=== PATIENT | male | born 1975 | race Caucasian/White ===

== ENCOUNTER 2018-05-08 14:47 | Outpatient (CLI) | payer MEDICAID ==
[~2018-05-08] VITALS: Ht 168.9 cm; Wt 100.7 kg
[2018-05-08 15:04] VITALS: BP 125/89
[2018-05-08 15:27] LABS: BASOPHILS % (AUTO) 0 % (0-10); EOSINOPHILS % (AUTO) 0 % (0-10); HEMATOCRIT 47 % (40-54); HEMOGLOBIN 16.8 G/DL (13.3-17.7); LYMPHOCYTES # (AUTO) 1.6 X 10^3 (1.0-4.0); LYMPHOCYTES % (AUTO) 10 % (12-44); MEAN CORPUSCULAR HEMOGLOBIN 31 PG (25-34); MEAN CORPUSCULAR HGB CONC 36 G/DL (32-36); MEAN CORPUSCULAR VOLUME 88 FL (80-99); MEAN PLATELET VOLUME 10.1 FL (7.4-10.4); MONOCYTES # (AUTO) 0.8 X 10^3 (0.0-1.0); MONOCYTES % (AUTO) 5 % (0-12); NEUTROPHILS # (AUTO) 14.2 X 10^3 (1.8-7.8); NEUTROPHILS % (AUTO) 85 % (42-75); PLATELET COUNT 281 10^3/uL (130-400); RED BLOOD COUNT 5.35 10^6/uL (4.35-5.85); RED CELL DISTRIBUTION WIDTH 13.6 % (10.0-14.5); WHITE BLOOD COUNT 16.7 10^3/uL (4.3-11.0)
[2018-05-08 15:49] LABS: BUN/CREATININE RATIO 11; CALCIUM 9.3 MG/DL (8.5-10.1); CARBON DIOXIDE 22 MMOL/L (21-32); CHLORIDE 107 MMOL/L (98-107); CREATININE SERUM 0.95 MG/DL (0.60-1.30); GFR ESTIMATED > 60; GLUCOSE 126 MG/DL (70-105); POTASSIUM 4.1 MMOL/L (3.6-5.0); SODIUM 138 MMOL/L (135-145)
[2018-05-08 16:00] LABS: BAND NEUTROPHILS 0 %; BASOPHILS % (MANUAL) 0 %; EOSINOPHILS % (MANUAL) 1 %; LYMPHOCYTES % (MANUAL) 9 %; MONOCYTES % (MANUAL) 1 %; NEUTROPHILS % (MANUAL) 89 %
[2018-05-08 16:01] LABS: RBC MORPH NORMAL
== END 2018-05-08 15:20 | disposition home or self-care (01) ==
LOC: PREOP 14:47
PROVIDERS: ATTEND Otolaryngology Otolaryngology/Facial Plastic Surgery
DX: Z01.810 Encounter for preprocedural cardiovascular examination (principal); Z01.812 Encounter for preprocedural laboratory examination; Z11.2 Encounter for screening for other bacterial diseases; J32.9 Chronic sinusitis, unspecified; J34.2 Deviated nasal septum; J34.3 Hypertrophy of nasal turbinates; H69.93 Unspecified Eustachian tube disorder, bilateral
CPT/HCPCS: 36415; 80048; 85007; 85027; 87081; 93005

== ENCOUNTER 2018-05-12 07:16 | Day surgery (SDC) | payer MEDICAID ==
[~2018-05-12] VITALS: Ht 168.9 cm; Wt 100.7 kg
[2018-05-12 07:30] VITALS: BP 147/89
[2018-05-12] MEDS ORDERED: BSS 15 ML ONE (07:36)
[2018-05-12] MEDS ORDERED: COCAINE HCL 4% 2 ML SYR ONE (07:36)
[2018-05-12] MEDS ORDERED: PHENYLEPHRINE 0.5% NASAL SPR (NEO-SYNEPHRINE) REG ONE (07:37)
[2018-05-12] MEDS ORDERED: LIDOCAINE/EPI 1%-1:200,000 (XYLOCAINE) 10 ML VIAL ONE (07:37)
[2018-05-12] MEDS ORDERED: LACTATED RINGERS 1,000 ML IV PRN (07:40)
[2018-05-12] MEDS ORDERED: FAMOTIDINE 20MG/2ML IV (PEPCID) IV ONE (07:45)
[2018-05-12] MEDS ORDERED: HYDROCORTISONE 100 MG/2 ML (Solu-CORTEF) VIAL IV ONE (07:45)
[2018-05-12] MEDS ORDERED: MIDAZOLAM 2 MG/2 ML (VERSED) VIAL IV ONE (07:45)
--- NOTE | 2018-05-12 07:55 | Progress Note-Pre Operative ---
Pre-Operative Progress Note H&P Reviewed The H&P was reviewed, patient examined and no changes noted. Date Seen by Provider: May 12, 2018 Time Seen by Provider: 07:30 Date H&P Reviewed: May 12, 2018 Time H&P Reviewed: 07:30 Pre-Operative Diagnosis: Bilat Chronic Sinusitis, Bilat abmormal eus tube fct, chris septum, bilat hy SHANTANU WEST MD May 12, 2018 7:55 am
[2018-05-12] MEDS ORDERED: CEFTRIAXONE FOR IV SCH (08:00)
[2018-05-12] MEDS ORDERED: cefTRIAXone FOR IV USE 750 MG in NS (IVPB) 50 ML IV ONE (08:00)
[2018-05-12] MEDS ORDERED: LIDOCAINE PF 2% 2 ML (XYLOCAINE) VIAL ONE (08:07)
[2018-05-12] MEDS ORDERED: fentaNYL INJECTION 100 MCG/2 ML AMP ONE (08:09)
[2018-05-12] MEDS ORDERED: MIDAZOLAM 2 MG/2 ML (VERSED) VIAL ONE (08:10)
[2018-05-12] MEDS ORDERED: DEXAMETHASONE 10 MG/ML (DECADRON) 1 ML VIAL ONE (08:43)
[2018-05-12] MEDS ORDERED: ONDANSETRON 4 MG/2 ML (SDV) Z0FRAN ONE (08:43)
[2018-05-12] MEDS ORDERED: SEVOFLURANE (ULTANE) 15 ML INHAL SOLN ONE ×4 (08:43→09:25)
[2018-05-12] MEDS ORDERED: proPOfol 200 MG/20 ML (DIPRIVAN) VIAL IV ONE (08:43)
[2018-05-12] MEDS ORDERED: ROCURONIUM 10 MG/ML 5 ML SYRINGE IV ONE (08:43)
[2018-05-12] MEDS ORDERED: D5 1/2 NS W/KCL 20 MEQ/L 1,000 ML IV SCH (09:41)
--- NOTE | 2018-05-12 09:41 | Progress Note-Post Operative ---
Post-Operative Progess Note Surgeon (s)/Stone Lathe Operator (s) Surgeon SHANTANU WEST MD Stone Lathe Operator n/a Pre-Operative Diagnosis Bilat Chronic Sinusitis, Bilat abmormal eus tube fct, chris septum, bilat hy Post-Operative Diagnosis same Post-Op Procedure Note Date of Procedure: May 12, 2018 Name of Procedure Performed: Bilat ESs, Septoplasty,Bilat Partial REd of Inf Turbs, BMT Description & Findings Description and Findings: n/a Anesthesia Type get Estimated Blood Loss minimal Packing none. Specimen(s) collected/removed Bilat Chrnic Sinus disease, nasal septum SHANTANU WEST MD May 12, 2018 9:41 am
[2018-05-12] MEDS ORDERED: HYDROcodone/APAP 5 MG/325 MG (LORTAB) TAB PO PRN (09:45)
[2018-05-12] MEDS ORDERED: predniSONE 20 MG TAB PO NR (09:45)
[2018-05-12] MEDS ORDERED: ACETAMINOPHEN 325 MG TABLET PO PRN (09:45)
[2018-05-12] MEDS ORDERED: PROMETHAZINE INJ 25 MG/ML (PHENERGAN) AMP IVP PRN (09:45)
[2018-05-12] MEDS ORDERED: morphine INJ 10 MG/ML 1ML (SYR OR VIAL) ONE (09:48)
[2018-05-12] MEDS ORDERED: HYDROmorphone 2 MG/ML VIAL (DILAUDID) IV ONE (10:00)
[2018-05-12] MEDS ORDERED: MEPERIDINE (DEMEROL) INJ 50 MG/ML IVP ONE ×2 (10:00)
[2018-05-12] MEDS ORDERED: morphine INJ 10 MG/ML 1ML (SYR OR VIAL) IVP ONE ×2 (10:00)
[2018-05-12] MEDS ORDERED: ONDANSETRON 4 MG/2 ML (SDV) Z0FRAN IVP PRN ×2 (10:00)
[2018-05-12] MEDS ORDERED: fentaNYL INJECTION 100 MCG/2 ML AMP IVP ONE (10:00)
[2018-05-12 10:40] VITALS: BP 164/100
[2018-05-12] MEDS ORDERED: HYDR-3812 PO (11:09)
[2018-05-12] MEDS ORDERED: AMOX-355 PO (11:09)
[2018-05-12] MEDS ORDERED: PRD20T PO (11:09)
[2018-05-12] MEDS ORDERED: OFLO5DRO7 EACH EAR (11:09)
[2018-05-12 11:10] VITALS: BP 152/98
[2018-05-12 11:40] VITALS: BP 148/94
[2018-05-12 11:55] VITALS: BP 148/94
--- NOTE | 2018-05-12 11:55 | Anesthesia-General Post-Op ---
General Patient Condition Mental Status/LOC: Same as Preop Cardiovascular: Satisfactory Nausea/Vomiting: Absent Respiratory: Satisfactory Pain: Controlled Complications: Absent Post Op Complications Complications None Follow Up Care/Instructions Patient Instructions None needed. Anesthesia/Patient Condition Patient Condition Patient is doing well, no complaints, stable vital signs, no apparent adverse anesthesia problems. No complications reported per nursing. SHARON JOHANSEN CRNA May 12, 2018 11:55
== END 2018-05-12 12:00 | disposition home or self-care (01) ==
LOC: SDC 07:16
PROVIDERS: ATTEND Otolaryngology Otolaryngology/Facial Plastic Surgery
DX: J32.0 Chronic maxillary sinusitis (principal); J32.2 Chronic ethmoidal sinusitis; J32.3 Chronic sphenoidal sinusitis; J34.2 Deviated nasal septum; J34.3 Hypertrophy of nasal turbinates; H69.93 Unspecified Eustachian tube disorder, bilateral; K21.9 Gastro-esophageal reflux disease without esophagitis; F17.210 Nicotine dependence, cigarettes, uncomplicated; F41.9 Anxiety disorder, unspecified

== ENCOUNTER 2018-10-10 13:00 | Emergency (ER) | payer MEDICAID ==
[~2018-10-10] VITALS: Ht 167.6 cm; Wt 99.8 kg
[~2018-10-10 13:00] MED LIST: AMOX-355 PO; HYDR-3812 PO; OFLO5DRO7 EACH EAR; PRD20T PO
--- NOTE | 2018-10-10 13:07 | NUR ---
Pt reports he is on Metoprolol XR for HTN for 1 1/2 mo and was sent to Dr Pablo office last week for appt regarding HTN. Pt states he has scheduled tests by Dr Pablo for Nuc Med stress testing and 2 D Echo. Pt also reports pulsatile tinnitus. Pt reports he took his BP, anxiety and stomach med all at 1000. Pt states he may not be on enought anxiety meds.
[2018-10-10 13:15] VITALS: BP 157/97
--- NOTE | 2018-10-10 13:22 | NUR ---
Dr Sims into room to see pt.
[2018-10-10 13:30] VITALS: BP 146/91
[2018-10-10] MEDS ORDERED: ALPR0.254 (13:35)
[2018-10-10] MEDS ORDERED: METO-387 (13:35)
--- NOTE | 2018-10-10 13:39 | NUR ---
Significant other returning to room.
--- NOTE | 2018-10-10 13:43 | ED General ---
General Chief Complaint: General Problems/Pain Stated Complaint: ELEVTED BP, ANXIETY Nursing Triage Note: Pt presents to ED reporting "did not feel well today". Pt took his BP and reports 150/100. Pt reports alittle nauseated earlier and felt shaky. Pt hx HTN and Anxiety and took his meds at 1000 including Prilosec for stomach. Nursing Sepsis Screen: No Definite Risk History of Present Illness Date Seen by Provider: Oct 10, 2018 Time Seen by Provider: 13:28 Initial Comments Patient reports because he "does not feel well today" patient reports he feels tenderness shaky and nauseated. Patient reports that he has had previous anxiety issues and that was similar to this. They took his blood pressure and it was 50/100 so he got concerned and came to the ER. Patient reports he has had a large workup for anxiety including multiple lather and usually comes back normal. He is feeling better at this time. His reports that he was "supposed to had his Xanax increased" last week but had to miss the appointment due to family . Patient does not have any chest pain or other symptoms at this time. Allergies and Home Medications Allergies Coded Allergies: buspirone (Unverified Allergy, Unknown, 10/10/18) doxycycline (Verified Allergy, Unknown, NAUSEA, 05/08/18) Home Medications Amoxicillin/Potassium Clav 1 Each Tablet, 1 EACH PO BID Prescribed by: ESTEFANI RIVERA on 05/12/18 1109 Hydrocodone/Acetaminophen 1 Each Tablet, 1-2 EACH PO Q4H PRN for PAIN-MODERATE Prescribed by: ESTEFANI RIVERA on 05/12/18 1109 Patient Home Medication List Home Medication List Reviewed: Yes Review of Systems Review of Systems Constitutional: No chills, No diaphoresis EENTM: no symptoms reported Respiratory: no symptoms reported Cardiovascular: no symptoms reported Gastrointestinal: No abdominal pain; nausea Psychiatric/Neurological: Anxiety, Tremors Past [id number]-[id number] Hx Past Med/Social Hx: Reviewed Nursing Past Med/Soc Hx Patient Social History Alcohol Use: Rarely Uses Recreational Drug Use: No Smoking Status: Former Smoker Type Used: Cigarettes Former Smoker, Quit: Aug 22, 2018 Recent Foreign Travel: No Contact w/Someone Who Travel: No Recent Infectious Disease Expo: No Recent Hopitalizations: No Physical Abuse: No Sexual Abuse: No Mistreated: No Fear: No Seasonal Allergies Seasonal Allergies: Yes Past Medical History Surgeries: Yes Gallbladder, Testicular Respiratory: No Cardiac: Yes Hypertension Neurological: No Genitourinary: No Gastrointestinal: Yes Ulcer Musculoskeletal: Yes Arthritis Endocrine: No HEENT: No Cancer: No Psychosocial: Yes Anxiety Integumentary: No Blood Disorders: No Physical Exam Vital Signs Vital Signs - First Documented 10/10/18 13:07 Temp 97.5 Pulse 103 Resp 20 B/P (MAP) 173/101 (125) Pulse Ox 98 O2 Delivery Room Air Capillary Refill : Less Than 3 Seconds Height, Weight, BMI Height: 5'6.00" Weight: 220lbs. 0.0oz. [id number]; 35.3 BMI Method:Stated General Appearance: No Apparent Distress, WD/WN HEENT: PERRL/EOMI, Normal ENT Inspection Neck: Full Range of Motion, Supple Respiratory: Chest Non Tender, Lungs Clear, Normal Breath Sounds Cardiovascular: Regular Rate, Rhythm, Normal Peripheral Pulses Gastrointestinal: Normal Bowel Sounds, Non Tender, Soft Extremity: Normal Inspection, Normal Range of Motion Neurologic/Psychiatric: Alert, Oriented x3, No Motor/Sensory Deficits Skin: Normal Color, Warm/Dry Progress/Results/Core Measures Suspected Sepsis Recent Fever Within 48 Hours: No Infection Criteria Present: None New/Unexplained Altered Menta: No Sepsis Screen: No Definite Risk SIRS Temperature:97.5 Pulse: 103 Respiratory Rate: 20 Blood Pressure 173 /101 Mean: 125 Results/Orders Vital Signs/I&O 10/10/18 13:07 Temp 97.5 Pulse 103 Resp 20 B/P (MAP) 173/101 (125) Pulse Ox 98 O2 Delivery Room Air Capillary Refill : Less Than 3 Seconds Blood Pressure Mean: 125 Progress Note : Time: 13:41 Progress Note Patient was offered extensive workup including cardiac with troponin but deferred since he has had multiple negative workups in the past.. He feels that is likely is anxiety since of similar symptoms in the past and he's recently had negative exams and labs. He did see a barge engineer recently and has a outpatient stress test and echo scheduled. He discussed that he really doesn't want to be on Xanax and an addictive medication. I recommended that he follow- up with his primary care physician and consider a daily long-term medication such as Paxil or similar antidepressant anti-anxiolytic. Patient is going to go and schedule an outpatient follow-up and will be discharged home in stable condition. Departure Impression Primary Impression: Anxiety Disposition: 01 HOME, SELF-CARE Condition: Stable Departure-Patient Inst. Decision time for Depature: 13:44 Referrals: CARMELA BURT MD (PCP/Family) Primary Care Physician Patient Instructions: Anxiety, Adult (DC) BALA YANES DO Oct 10, 2018 13:43
[2018-10-10 13:55] VITALS: BP 134/86
--- NOTE | 2018-10-10 13:55 | NUR ---
Pt discharged at this time to home after verbalizing understanding of home instructions. Pt has declined for cardiac work up offered by physician but pt states, "I just was seen by Dr Pablo and have more tests scheduled." "I feel it is anxiety, I understand you can not adjust my meds." "I apologize that I don't want more tests done." Pt was given reassurance staff will do whatever he wanted.
== END 2018-10-10 13:55 | disposition home or self-care (01) ==
LOC: EDUNIT# 13:00 → ER FS 13:02
DX: F41.9 Anxiety disorder, unspecified (principal); I10 Essential (primary) hypertension; Z87.19 Personal history of other diseases of the digestive system; Z88.8 Allergy status to other drugs, medicaments and biological substances; Z88.1 Allergy status to other antibiotic agents; Z87.891 Personal history of nicotine dependence; Z98.890 Other specified postprocedural states
CPT/HCPCS: 99281

== ENCOUNTER → 2018-11-06 | Outpatient (CLI) | payer MEDICAID ==
[~2018-11-06] MED LIST changes: +ALPR0.254; +METO-387
== END ==
LOC: CARD 09:05
PROVIDERS: ATTEND Internal Medicine Cardiovascular Disease
DX: R07.9 Chest pain, unspecified (principal); R00.2 Palpitations; F41.9 Anxiety disorder, unspecified; K27.9 Peptic ulcer, site unspecified, unspecified as acute or chronic, without hemorrhage or perforation; K21.9 Gastro-esophageal reflux disease without esophagitis; E66.9 Obesity, unspecified; Z68.35 Body mass index [BMI] 35.0-35.9, adult; Z72.0 Tobacco use
CPT/HCPCS: 93306; 93351

== ENCOUNTER 2019-09-25 11:54 | Emergency (ER) | payer MEDICAID ==
[~2019-09-25] VITALS: Ht 170.2 cm; Wt 103.0 kg
[~2019-09-25 11:54] MED LIST changes: -METO-387; +MTP25TSR; +OFLO5DRO33 EACH EAR; -OFLO5DRO7 EACH EAR
--- NOTE | 2019-09-25 12:38 | ED Cardiac General ---
History of Present Illness General Chief Complaint: Cardiac/General Problems Stated Complaint: BP PROBLEM; LIGHT HEADED Nursing Triage Note: Patient reports he has panic attacks, states he believes he is having a panic attack today, states he took his blood pressure at home and was getting higher than normal readings and felt as though he was "missing some breaths" while taking his blood pressure. He states he has taken his xanax this morning already. Source: patient Exam Limitations: no limitations History of Present Illness Date Seen by Provider: Sep 25, 2019 Time Seen by Provider: 12:00 Initial Comments The patient is a pleasant 43-year-old male presents for evaluation of anxiety, palpitations, and some dizziness. He states that he felt like he was having a panic attack today and took his blood pressure. While doing this he felt like he was missing either some heartbeat source of breaths, he is not sure. He feels completely back to normal at this time to wanted to be evaluated. He takes Xanax for anxiety and did take some this morning. He is alert and oriented 4, calm, and appears to be in no distress this time. He denies headache, neck pain or stiffness, vision changes, chest discomfort or shortness of breath, nausea or vomiting, fevers or chills, or syncope. He states that he when he stands up he feels a little dizzy occasionally. Timing/Duration: 4-6 hours Severity: mild Allergies and Home Medications Allergies Coded Allergies: buspirone (Unverified Allergy, Unknown, 10/10/18) doxycycline (Verified Allergy, Unknown, NAUSEA, 05/08/18) Home Medications Amoxicillin/Potassium Clav 1 Each Tablet, 1 EACH PO BID Prescribed by: ESTEFANI RIVERA on 05/12/18 1109 Hydrocodone/Acetaminophen 1 Each Tablet, 1-2 EACH PO Q4H PRN for PAIN-MODERATE Prescribed by: ESTEFANI RIVERA on 05/12/18 1109 Patient Home Medication List Home Medication List Reviewed: Yes Review of Systems Review of Systems Constitutional: dizziness EENTM: No Symptoms Reported Respiratory: No Symptoms Reported Cardiovascular: Palpitations Gastrointestinal: No Symptoms Reported Genitourinary: No Symptoms Reported Musculoskeletal: no symptoms reported Skin: no symptoms reported Psychiatric/Neurological: Anxiety Endocrine: No Symptoms Reported Hematologic/Lymphatic: No Symptoms Reported All Other Systems Reviewed Negative Unless Noted: Yes Past Lmdrvha-Ytqvsj-Smnzbz Hx Past Med/Social Hx: Reviewed Nursing Past Med/Soc Hx Patient Social History Type Used: Cigarettes Former Smoker, Quit: Aug 22, 2018 Recent Foreign Travel: No Contact w/Someone Who Travel: No Recent Infectious Disease Expo: No Recent Hopitalizations: No Seasonal Allergies Seasonal Allergies: Yes Past Medical History Surgeries: Yes Gallbladder, Testicular Respiratory: No Cardiac: Yes Hypertension Neurological: No Genitourinary: No Gastrointestinal: Yes Ulcer Musculoskeletal: Yes Arthritis Endocrine: No HEENT: No Cancer: No Psychosocial: Yes Anxiety Integumentary: No Blood Disorders: No Physical Exam Vital Signs Vital Signs - First Documented 09/25/19 12:18 Temp 36.6 Pulse 106 Resp 18 B/P (MAP) 186/96 (126) Pulse Ox 97 O2 Delivery Room Air Capillary Refill : Less Than 3 Seconds Height, Weight, BMI Height: 5'6.50" Weight: 222lbs. 0.0oz. 100.464652cw; 35.00 BMI Method:Stated General Appearance: No Apparent Distress, WD/WN HEENT: PERRL/EOMI, Pharynx Normal Respiratory: Chest Non Tender, Lungs Clear, Normal Breath Sounds, No Accessory Muscle Use Cardiovascular: Regular Rate, Rhythm, No Edema, No Murmur Gastrointestinal: Normal Bowel Sounds, No Pulsatile Mass, Non Tender, Soft Extremity: Normal Capillary Refill, Normal Inspection, Non Tender Neurologic/Psychiatric: Alert, Oriented x3, No Motor/Sensory Deficits, Normal Mood/Affect Skin: Normal Color, Warm/Dry Progress/Results/Core Measures Results/Orders Lab Results Laboratory Tests Test 09/25/19 12:45 Range/Units White Blood Count 5.0 4.3-11.0 10^3/uL Red Blood Count 5.49 4.35-5.85 10^6/uL Hemoglobin 16.7 13.3-17.7 G/DL Hematocrit 47 40-54 % Mean Corpuscular Volume 86 80-99 FL Mean Corpuscular Hemoglobin 30 25-34 PG Mean Corpuscular Hemoglobin Concent 35 32-36 G/DL Red Cell Distribution Width 12.6 10.0-14.5 % Platelet Count 226 130-400 10^3/uL Mean Platelet Volume 9.9 7.4-10.4 FL Neutrophils (%) (Auto) 52 42-75 % Lymphocytes (%) (Auto) 34 12-44 % Monocytes (%) (Auto) 9 0-12 % Eosinophils (%) (Auto) 4 0-10 % Basophils (%) (Auto) 1 0-10 % Neutrophils # (Auto) 2.6 1.8-7.8 X 10^3 Lymphocytes # (Auto) 1.7 1.0-4.0 X 10^3 Monocytes # (Auto) 0.5 0.0-1.0 X 10^3 Eosinophils # (Auto) 0.2 0.0-0.3 10^3/uL Basophils # (Auto) 0.1 0.0-0.1 10^3/uL Sodium Level 139 135-145 MMOL/L Potassium Level 4.1 3.6-5.0 MMOL/L Chloride Level 101 98-107 MMOL/L Carbon Dioxide Level 23 21-32 MMOL/L Anion Gap 15 H 5-14 MMOL/L Blood Urea Nitrogen 10 7-18 MG/DL Creatinine 0.85 0.60-1.30 MG/DL Estimat Glomerular Filtration Rate > 60 BUN/Creatinine Ratio 12 Glucose Level 114 H 70-105 MG/DL Calcium Level 9.2 8.5-10.1 MG/DL Corrected Calcium 9.1 8.5-10.1 MG/DL Total Bilirubin 0.2 0.1-1.0 MG/DL Aspartate Amino Transf (AST/SGOT) 29 5-34 U/L Alanine Aminotransferase (ALT/SGPT) 41 0-55 U/L Alkaline Phosphatase 70 40-136 U/L Total Protein 7.4 6.4-8.2 GM/DL Albumin 4.1 3.2-4.5 GM/DL My Orders Orders - ALEXANDER RODRIGUEZ DO Ekg Tracing (09/25/19 12:18) Cbc With Automated Diff (09/25/19 12:27) Comprehensive Metabolic Panel (09/25/19 12:27) Ns Iv 1000 Ml (Sodium Chloride 0.9%) (09/25/19 12:45) Vital Signs/I&O 09/25/19 12:18 Temp 36.6 Pulse 106 Resp 18 B/P (MAP) 186/96 (126) Pulse Ox 97 O2 Delivery Room Air Blood Pressure Mean: 126 Progress Progress Note : Progress Note @1425 - patient and family informed of lab results which are unremarkable. The patient's EKG was also unremarkable. Advise close follow-up with PCP in continuing to monitor his blood pressure at home with his home blood pressure cuff. The patient is no complaints and is asking to be discharged home. Today fails reveal any emergent pathology and the patient is stable for discharge home at this time. EKG : Comment @1304 - normal sinus rhythm, rate of 79, normal axis, no acute ischemic findings noted, no STEMI, reviewed and interpreted by myself Departure Impression Primary Impression: Palpitations Additional Impression: Anxiety Disposition: 01 HOME, SELF-CARE Condition: Stable Departure-Patient Inst. Decision time for Depature: 14:32 Referrals: CARMELA BURT MD (PCP/Family) Primary Care Physician Patient Instructions: Palpitations, Anxiety, Adult (DC) Add. Discharge Instructions: Continue to take your home medications as prescribed. Follow-up with your doctor in the next 1-2 days and discuss your anxiety symptoms as well as your blood pressure concerns. Return to the emergency Department immediately for new or worsening symptoms. ALEXANDER RODRIGUEZ DO Sep 25, 2019 12:38
[2019-09-25] MEDS ORDERED: NS IV 1000 ML 1,000 ML IV SCH (12:45)
[2019-09-25 13:09] LABS: HEMATOCRIT 47 % (40-54); HEMOGLOBIN 16.7 G/DL (13.3-17.7); MEAN CORPUSCULAR HEMOGLOBIN 30 PG (25-34); MEAN CORPUSCULAR HGB CONC 35 G/DL (32-36); MEAN CORPUSCULAR VOLUME 86 FL (80-99); MEAN PLATELET VOLUME 9.9 FL (7.4-10.4); NEUTROPHILS % (AUTO) 52 % (42-75); PLATELET COUNT 226 10^3/uL (130-400); RED CELL DISTRIBUTION WIDTH 12.6 % (10.0-14.5)
[2019-09-25 13:10] LABS: BASOPHILS # (AUTO) 0.1 10^3/uL (0.0-0.1); BASOPHILS % (AUTO) 1 % (0-10); EOSINOPHILS # (AUTO) 0.2 10^3/uL (0.0-0.3); EOSINOPHILS % (AUTO) 4 % (0-10); LYMPHOCYTES # (AUTO) 1.7 X 10^3 (1.0-4.0); LYMPHOCYTES % (AUTO) 34 % (12-44); MONOCYTES # (AUTO) 0.5 X 10^3 (0.0-1.0); MONOCYTES % (AUTO) 9 % (0-12); NEUTROPHILS # (AUTO) 2.6 X 10^3 (1.8-7.8)
[2019-09-25 13:28] LABS: SODIUM 139 MMOL/L (135-145)
[2019-09-25 13:29] LABS: ALANINE AMINOTRANSFERASE 41 U/L (0-55); ALBUMIN 4.1 GM/DL (3.2-4.5); ALKALINE PHOSPHATASE 70 U/L (40-136); BILIRUBIN,TOTAL 0.2 MG/DL (0.1-1.0); BUN/CREATININE RATIO 12; CALCIUM 9.2 MG/DL (8.5-10.1); CARBON DIOXIDE 23 MMOL/L (21-32); CHLORIDE 101 MMOL/L (98-107); CREATININE SERUM 0.85 MG/DL (0.60-1.30); GFR ESTIMATED > 60; GLUCOSE 114 MG/DL (70-105); POTASSIUM 4.1 MMOL/L (3.6-5.0); TOTAL PROTEIN 7.4 GM/DL (6.4-8.2)
[2019-09-25 14:42] VITALS: BP 138/87
== END 2019-09-25 14:42 | disposition home or self-care (01) ==
LOC: EDUNIT# 11:54 → ER FS 11:55
DX: F41.9 Anxiety disorder, unspecified (principal); I10 Essential (primary) hypertension; Z88.1 Allergy status to other antibiotic agents; Z88.8 Allergy status to other drugs, medicaments and biological substances; Z77.22 Contact with and (suspected) exposure to environmental tobacco smoke (acute) (chronic)
CPT/HCPCS: 36415; 80053; 85025; 93005

== ENCOUNTER 2020-12-10 19:52 | Emergency (ER) | payer MEDICAID ==
[~2020-12-10] VITALS: Ht 175.3 cm; Wt 104.7 kg
[~2020-12-10 19:52] MED LIST changes: +ACHD5005 PO; +ALPR.25T; -ALPR0.254; -HYDR-3812 PO
[2020-12-10 20:11] LABS: BASOPHILS % (AUTO) 1 % (0-10); EOSINOPHILS % (AUTO) 3 % (0-10); HEMATOCRIT 45 % (40-54); HEMOGLOBIN 16.3 G/DL (13.3-17.7); LYMPHOCYTES % (AUTO) 21 % (12-44); MEAN CORPUSCULAR HEMOGLOBIN 31 PG (25-34); MEAN CORPUSCULAR HGB CONC 36 G/DL (32-36); MEAN CORPUSCULAR VOLUME 85 FL (80-99); MEAN PLATELET VOLUME 9.5 FL (7.4-10.4); MONOCYTES % (AUTO) 9 % (0-12); NEUTROPHILS % (AUTO) 66 % (42-75); PLATELET COUNT 264 10^3/uL (130-400)
[2020-12-10 20:12] LABS: BASOPHILS # (AUTO) 0.1 10^3/uL (0.0-0.1); EOSINOPHILS # (AUTO) 0.2 10^3/uL (0.0-0.3); LYMPHOCYTES # (AUTO) 1.6 X 10^3 (1.0-4.0); MONOCYTES # (AUTO) 0.7 X 10^3 (0.0-1.0); NEUTROPHILS # (AUTO) 5.3 X 10^3 (1.8-7.8)
[2020-12-10 20:30] LABS: ALANINE AMINOTRANSFERASE 66 U/L (0-55); ALKALINE PHOSPHATASE 95 U/L (40-136); BILIRUBIN,TOTAL 0.4 MG/DL (0.1-1.0); BUN/CREATININE RATIO 14; CALCIUM 9.3 MG/DL (8.5-10.1); CARBON DIOXIDE 23 MMOL/L (21-32); CHLORIDE 107 MMOL/L (98-107); CREATININE SERUM 0.94 MG/DL (0.60-1.30); GFR ESTIMATED > 60; GLUCOSE 112 MG/DL (70-105); POTASSIUM 4.3 MMOL/L (3.6-5.0); SODIUM 139 MMOL/L (135-145)
[2020-12-10 20:31] LABS: ALBUMIN 4.7 GM/DL (3.2-4.5); TOTAL PROTEIN 7.7 GM/DL (6.4-8.2)
--- NOTE | 2020-12-10 20:32 | ED General ---
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 He also had a bloated sensation in his abdomen. He had checked his blood pressure and it was elevated which concerned him so he left work to come be evaluated. His anxiety medicine is Xanax and he takes it 3 times a day. He also takes a low-dose lisinopril for blood pressure. He feels like he might need adjustment of his Xanax. He has been working long hours and extra days recently with the [employer]. With this extra stress he has been more anxious. He denies any headache or change in vision. He had an epigastric discomfort and bloating sensation. He denied any nausea or vomiting. He has been trying to eat healthier and has lost a lot of weight recently but today he was running late so that made him more anxious as well as he had eaten fast food which he has not done for quite a while. This may have contributed to his bloated sensation and help to trigger more anxiety and elevated blood pressure. He denies any numbness or tingling in his arms or legs. He has no change in his vision. Allergies and Home Medications Allergies Coded Allergies: buspirone (Unverified Allergy, Unknown, 10/10/18) doxycycline (Verified Allergy, Unknown, NAUSEA, 05/08/18) Home Medications Amoxicillin/Potassium Clav 1 Each Tablet, 1 EACH PO BID Prescribed by: ESTEFANI RIVERA on 05/12/18 1107 Hydrocodone Bit/Acetaminophen 1 Each Tablet, 1-2 EACH PO Q4H PRN for PAIN- MODERATE Prescribed by: ESTEFANI RIVERA on 05/12/18 1109 Patient Home Medication List Home Medication List Reviewed: Yes Review of Systems Review of Systems Constitutional: No chills, No diaphoresis, No dizziness, No fever EENTM: no symptoms reported Respiratory: no symptoms reported Cardiovascular: chest pain (Epigastric bloating and discomfort for the last few hours) Gastrointestinal: see HPI Genitourinary: no symptoms reported Musculoskeletal: no symptoms reported Skin: no symptoms reported Psychiatric/Neurological: Anxiety; Denies Headache Hematologic/Lymphatic: No Symptoms Reported Past Rdgqhoy-Qbndbx-Siiyin Hx Past Med/Social Hx: Reviewed Nursing Past Med/Soc Hx Patient Social History Alcohol Use: Denies Use Smoking Status: Current Everyday Smoker Type Used: Cigarettes Former Smoker, Quit: Aug 22, 2018 2nd Hand Smoke Exposure: Yes Recent Infectious Disease Expo: No Recent Hopitalizations: No Seasonal Allergies Seasonal Allergies: Yes Past Medical History Surgeries: Yes (sinus surgery) Gallbladder, Testicular Respiratory: No Cardiac: Yes Hypertension Neurological: No Genitourinary: No Gastrointestinal: Yes Ulcer Musculoskeletal: Yes Arthritis Endocrine: No HEENT: No Cancer: No Psychosocial: Yes (panic attacks) Anxiety Integumentary: No Blood Disorders: No Physical Exam Vital Signs Vital Signs - First Documented 12/10/20 20:06 Temp 37.1 Pulse 108 Resp 16 B/P (MAP) 170/92 (118) Pulse Ox 97 O2 Delivery Room Air Capillary Refill : Less Than 3 Seconds Height, Weight, BMI Height: 5'6.50" Weight: 222lbs. 0.0oz. 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 Skin: Normal Color, Warm/Dry Progress/Results/Core Measures Suspected Sepsis Recent Fever Within 48 Hours: No Infection Criteria Present: None New/Unexplained Altered Menta: No Sepsis Screen: No Definite Risk SIRS Temperature: Pulse: 108 Respiratory Rate: 16 Laboratory Tests 12/10/20 19:55: White Blood Count 8.0 Blood Pressure 170 /92 Mean: 118 Laboratory Tests 12/10/20 19:55: Creatinine 0.94, Platelet Count 264, Total Bilirubin 0.4 Results/Orders Lab Results Laboratory Tests Test 12/10/20 19:55 Range/Units White Blood Count 8.0 4.3-11.0 10^3/uL Red Blood Count 5.31 4.35-5.85 10^6/uL Hemoglobin 16.3 13.3-17.7 G/DL Hematocrit 45 40-54 % Mean Corpuscular Volume 85 80-99 FL Mean Corpuscular Hemoglobin 31 25-34 PG Mean Corpuscular Hemoglobin Concent 36 32-36 G/DL Red Cell Distribution Width 12.7 10.0-14.5 % Platelet Count 264 130-400 10^3/uL Mean Platelet Volume 9.5 7.4-10.4 FL Immature Granulocyte % (Auto) 0 % Neutrophils (%) (Auto) 66 42-75 % Lymphocytes (%) (Auto) 21 12-44 % Monocytes (%) (Auto) 9 0-12 % Eosinophils (%) (Auto) 3 0-10 % Basophils (%) (Auto) 1 0-10 % Neutrophils # (Auto) 5.3 1.8-7.8 X 10^3 Lymphocytes # (Auto) 1.6 1.0-4.0 X 10^3 Monocytes # (Auto) 0.7 0.0-1.0 X 10^3 Eosinophils # (Auto) 0.2 0.0-0.3 10^3/uL Basophils # (Auto) 0.1 0.0-0.1 10^3/uL Immature Granulocyte # (Auto) 0.0 0.0-0.1 10^3/uL Sodium Level 139 135-145 MMOL/L Potassium Level 4.3 3.6-5.0 MMOL/L Chloride Level 107 98-107 MMOL/L Carbon Dioxide Level 23 21-32 MMOL/L Anion Gap 9 5-14 MMOL/L Blood Urea Nitrogen 13 7-18 MG/DL Creatinine 0.94 0.60-1.30 MG/DL Estimat Glomerular Filtration Rate > 60 BUN/Creatinine Ratio 14 Glucose Level 112 H 70-105 MG/DL Calcium Level 9.3 8.5-10.1 MG/DL Corrected Calcium 8.5-10.1 MG/DL Total Bilirubin 0.4 0.1-1.0 MG/DL Aspartate Amino Transf (AST/SGOT) 32 5-34 U/L Alanine Aminotransferase (ALT/SGPT) 66 H 0-55 U/L Alkaline Phosphatase 95 40-136 U/L Troponin I < 0.30 <0.30 NG/ML Total Protein 7.7 6.4-8.2 GM/DL Albumin 4.7 H 3.2-4.5 GM/DL Lipase 20 8-78 U/L My Orders Orders - BRENDA POOLE MD Cbc With Automated Diff (12/10/20 19:55) Comprehensive Metabolic Panel (12/10/20 19:55) Troponin I Fs (12/10/20 19:55) Ekg Tracing (12/10/20 19:55) Chest 1 View Ap/Pa Only (12/10/20 19:55) Iv Heplock-Insert (Order) (12/10/20 19:55) Lipase (12/10/20 20:31) Pantoprazole Injection (Protonix Injecti (12/10/20 20:52) Metoprolol Tartrate Injection (Lopressor (12/10/20 20:52) Vital Signs/I&O 12/10/20 12/10/20 20:06 21:27 Temp 37.1 Pulse 108 80 Resp 16 16 B/P (MAP) 170/92 (118) 136/80 Pulse Ox 97 96 O2 Delivery Room Air Room Air Capillary Refill : Less Than 3 Seconds Blood Pressure Mean: 118 Progress Note #1: Progress Note With his complaint of abdominal bloating and concern about elevated blood pressure as well as possible anxiety attack and electrocardiogram was obtained as well as basic labs including cardiac enzymes. His electrocardiogram did not demonstrate any acute ST elevation. Allowed to rest in the room while waiting on testing to come back. Placed on cardiac monitor technician for monitoring his heart rhythm and initial tracing shows sinus tachycardia without ectopy. Differential diagnosis includes anxiety attack, uncontrolled blood pressure, myocardial infarction, gastroenteritis, gastritis with esophagitis, esophageal spasms, pancreatitis Progress Note #2: Time: 20:44 Progress Note Reviewed with patient that his electrocardiogram, chest x-ray, initial labs appeared stable. He continued to feel that this was related back to anxiety as it felt similar to anxiety and panic attacks he has had previously. Also the fact that he ate fast food which was abnormal for him could be contributing to the bloating. With reviewing results and him being more calm his heart rate was coming down and continue to show sinus rhythm on telemetry monitoring. He was down to a rate of 96 bpm with a sinus rhythm on telemetry cardiac monitoring prior to giving a dose of metoprolol. Counseled patient that with his symptoms would try a dose of metoprolol to help with his elevated blood pressure and a dose of Protonix to help with the bloating and possible gastritis. If he felt like he needed an additional dose of Xanax he could take that when he got home. Called the clinic to follow-up and see if they wanted to adjust his anxiety medicines as he may need a higher dose or adjustment since he has been taking the medication on a regular basis for several years. 2055 cardiac enzymes were negative for acute myocardial infarction her acute coronary syndrome. Will see how he feels after metoprolol and Protonix but anticipate discharge to home as discussed above. Progress Note #3: Time: 21:14 Progress Note On recheck after medication the patient states he was feeling more relaxed. His heart rate and blood pressure continue to show improvement. His cardiac telemetry monitoring now shows his heart rate in the 70s with sinus rhythm. His blood pressure was down to 127/71. Discharge with plan as above. ECG Initial ECG Impression Date: Dec 10, 2020 Initial ECG Impression Time: 19:58 Initial ECG Rate: 110 Initial ECG Rhythm: S.Tach Initial ECG Comparisson: No Previous ECG Available Comment Sinus tachycardia with a heart rate of 110 bpm. OK interval [address] elevation. QT interval 309 ms with a QTc interval 419 ms. There is no prior tracing immediately available for comparison. Departure Impression Primary Impression: Anxiety Additional Impressions: Abdominal bloating Elevated blood pressure reading Disposition: HOME, SELF-CARE Condition: Improved Departure-Patient Inst. Decision time for Depature: 21:20 Referrals: CARMELA BURT MD (PCP/Family) Primary Care Physician Patient Instructions: Anxiety, Adult ED, Tips to Help You Ronald in Uncertain Times, Gas and Bloating, High Blood Pressure (DC) Add. Discharge Instructions: Take an extra dose of your Xanax (Alprazolam) when you get home tonight to help you rest. Follow up with clinic about your anxiety and dosing of the medicine. Since you have been taking it for a while and on a regular basis they may need to adjust your dose or do something to help your anxiety better. If you have worsening symptoms or more problems get rechecked. All discharge instructions reviewed with patient and/or family. Voiced understanding. Work/School Note: Work Release Form Date Seen in the Emergency Department: Dec 10, 2020 Return to Work: Dec 14, 2020 Restrictions: No Restrictions BRENDA POOLE MD Dec 10, 2020 20:32
--- NOTE | 2020-12-10 20:39 | Diagnostic Imaging Report ---
EXAMINATION: Chest 1 view. HISTORY: Chest pain. Hypertension. COMPARISON: None available. FINDINGS: The lung volumes are normal. No focal consolidation is seen. No large pleural effusion or pneumothorax is seen. The cardiomediastinal silhouette is normal in size and contour. No acute osseous abnormality is seen. IMPRESSION: No acute pleuroparenchymal process. Dictated by: Dictated on workstation # [id number]
[2020-12-10] MEDS ORDERED: meTOprolol 5 MG/5 ML (LOPRESSOR) VIAL IV STA (20:52)
[2020-12-10] MEDS ORDERED: PANTOPRAZOLE 40 MG (PROTONIX) VIAL IV STA (20:52)
[2020-12-10 21:27] VITALS: BP 136/80
== END 2020-12-10 21:27 | disposition home or self-care (01) ==
LOC: EDUNIT# 19:52 → ER FS 19:53
DX: F41.9 Anxiety disorder, unspecified (principal); R14.0 Abdominal distension (gaseous); I10 Essential (primary) hypertension; F17.210 Nicotine dependence, cigarettes, uncomplicated; Z88.1 Allergy status to other antibiotic agents; Z88.8 Allergy status to other drugs, medicaments and biological substances
CPT/HCPCS: 36415; 71045; 80053; 83690; 84484; 85025; 93005

== ENCOUNTER 2022-05-10 04:04 | Emergency (ER) | payer MEDICAID ==
[~2022-05-10] VITALS: Ht 170.1 cm; Wt 100.5 kg
[~2022-05-10 04:04] MED LIST changes: -ALPR.25T; +ALPR.25T PO
[2022-05-10] MEDS ORDERED: meTOprolol 5 MG/5 ML (LOPRESSOR) VIAL IV STA (04:21)
[2022-05-10 04:30] LABS: BASOPHILS # (AUTO) 0.1 10^3/uL (0.0-0.1); BASOPHILS % (AUTO) 1 % (0-10); EOSINOPHILS # (AUTO) 0.3 10^3/uL (0.0-0.3); EOSINOPHILS % (AUTO) 2 % (0-10); HEMATOCRIT 48 % (40-54); HEMOGLOBIN 17.2 g/dL (13.3-17.7); LYMPHOCYTES # (AUTO) 3.1 10^3/uL (1.0-4.0); LYMPHOCYTES % (AUTO) 21 % (12-44); MEAN CORPUSCULAR HEMOGLOBIN 31 pg (25-34); MEAN CORPUSCULAR HGB CONC 36 g/dL (32-36); MEAN CORPUSCULAR VOLUME 85 fL (80-99); MEAN PLATELET VOLUME 10.1 fL (9.0-12.2); MONOCYTES # (AUTO) 1.1 10^3/uL (0.0-1.0); MONOCYTES % (AUTO) 8 % (0-12); NEUTROPHILS % (AUTO) 68 % (42-75); PLATELET COUNT 319 10^3/uL (130-400); WHITE BLOOD COUNT 14.7 10^3/uL (4.3-11.0)
[2022-05-10] MEDS ORDERED: ASPIRIN 81 MG CHEW (CHILDREN'S ASA) PO ONE (04:30)
--- NOTE | 2022-05-10 04:33 | ED Chest Pain ---
General Chief Complaint: Chest Pain Stated Complaint: CHEST PAINS Nursing Triage Note: Pt arrival per POV and immediately brought ambulatory from registration window on arrival to ED Rm 1. Pt reports he has just awakened in last 30-45 min with chest pain concerning to him with noting his BP elevated at home. Pt is under a great deal of stressors and also reports it feels similar to his anxiety attacks. Pt with HTN hx and has seen intelligence director Dr Pablo in [place] previously. Source: patient, old records History of Present Illness Date Seen by Provider: May 10, 2022 Time Seen by Provider: 04:04 Initial Comments 46 yo male presenting with complaint of chest pain and heart racing. 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 He had elevated blood pressure at home 170/100. He thought he might be having a panic attack as he has had them before, and has been under extra stress. He states his left him a few days ago. He has some dizziness and nausea that he gets frequently due to chronic sinus disease. He has pain 4/10 that is all over chest and in the middle of chest. He has not taken anything for it at home. He last had Xanax around 1700. He has had a stress test with Dr. Pablo 2018 that did not show any ischemia but had some minimal depression in ST leads with activity. He feels like his heart is racing. He has hx of HTN, Anxiety, chronic sinus disease. Reports he takes low dose lisinopril in the mornings and has not taken it yet today. No known cardiac disease in close family relatives but thinks he had an uncle that had heart attack in his 30s. Timing/Duration: 1/2 hour Severity/Quality: mild, tightness Location: substernal, central Radiation: no radiation Activities at Onset: sleep Prior CP/Workup: non-cardiac, echocardiography, stress test Modifying Factors: worse with other (stress) ASA po CHEMISTRY ASSOCIATE: No NTG SL CHEMISTRY ASSOCIATE: No Associated Symptoms: No abdominal pain (no pain but has full feeling in abdomen), No back pain, No diaphoresis; dizziness; No edema, No fatigue, No fever/chills, No headache, No heartburn; nausea/vomiting (nausea with dizziness that he gets with anxiety as well as chronic sinus disease); No rash, No shortness of breath, No swelling/lump in chest, No syncope, No weakness Allergies and Home Medications Allergies Coded Allergies: buspirone (Unverified Allergy, Unknown, 10/10/18) doxycycline (Verified Allergy, Unknown, NAUSEA, 05/08/18) Patient Home Medication List Home Medication List Reviewed: Yes ALPRAZolam (Xanax Tablet) 0.25 Mg Tab, 0.25 MG PO Q8H PRN for ANXIETY, (Reported) Entered as Reported by: VONNIE LOUIS on 10/10/18 133 Last Action: Last Taken Edited Lisinopril (Lisinopril) 5 Mg Tablet, 5 MG PO DAILY, (Reported) Entered as Reported by: VONNIE LOUIS on 05/10/22 0456 Last Action: New Order Discontinued Medications Amoxicillin/Potassium Clav (Augmentin 500-125 Tablet) 1 Each Tablet, 1 EACH PO BID Discontinued Reason: Referral/FU Appt-Addtl Prescribed by: ESTEFANI RIVERA on 05/12/18 1109 Last Action: Discontinued Hydrocodone Bit/Acetaminophen (Lortab 5 Mg Tablet) 1 Each Tablet, 1-2 EACH PO Q4H PRN for PAIN-MODERATE Discontinued Reason: Referral/FU Appt-Addtl Prescribed by: ESTEFANI RIVERA on 05/12/18 110 Last Action: Discontinued Metoprolol Succinate (Metoprolol Succinate) 25 Mg Tab.er.24h, (Reported) Discontinued Reason: Referral/FU Appt-Addtl Entered as Reported by: VONNIE LOUIS on 10/10/181334 Last Action: Discontinued Review of Systems Review of Systems Constitutional: see HPI; No chills, No fever EENTM: No Blurred Vision, No Eye Pain; Ear Pain (pressure); No Nose Congestion Respiratory: Denies Cough, Denies Shortness of Air Cardiovascular: See HPI Gastrointestinal: See HPI Genitourinary: No Symptoms Reported Musculoskeletal: no symptoms reported Skin: No rash Psychiatric/Neurological: Anxiety, Emotional Problems Endocrine: No Symptoms Reported Hematologic/Lymphatic: No Symptoms Reported Past Hjmjpsi-Jxiuwg-Vheemy Hx Patient Social History Tobacco Use?: Yes Tobacco type used: Cigarettes Smoking Status: Current Everyday Smoker Use of E-Cig and/or Vaping dev: No Substance use?: No Alcohol Use?: No Seasonal Allergies Seasonal Allergies: Yes Past Medical History Surgery/Hospitalization HX: Hypertension, Anxiety, Chronic Sinus disease, Sinus surgery Surgeries: Yes (sinus surgery) Gallbladder, Testicular Respiratory: No Cardiac: Yes Hypertension Neurological: No Genitourinary: No Gastrointestinal: Yes Ulcer Musculoskeletal: Yes Arthritis Endocrine: No HEENT: No Cancer: No Psychosocial: Yes (panic attacks) Anxiety Integumentary: No Blood Disorders: No Physical Exam Vital Signs Vital Signs - First Documented Capillary Refill : Less Than 3 Seconds Height, Weight, BMI Height: 5'6.50" Weight: 222lbs. 0.0oz. 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 Denies radiation Progress/Results/Core Measures Results/Orders Lab Results Laboratory Tests Test 05/10/22 04:13 05/10/22 05:59 Range/Units White Blood Count 14.7 H 4.3-11.0 10^3/uL Red Blood Count 5.62 H 4.30-5.52 10^6/uL Hemoglobin 17.2 13.3-17.7 g/dL Hematocrit 48 40-54 % Mean Corpuscular Volume 85 80-99 fL Mean Corpuscular Hemoglobin 31 25-34 pg Mean Corpuscular Hemoglobin Concent 36 32-36 g/dL Red Cell Distribution Width 12.7 10.0-14.5 % Platelet Count 319 130-400 10^3/uL Mean Platelet Volume 10.1 9.0-12.2 fL Immature Granulocyte % (Auto) 1 % Neutrophils (%) (Auto) 68 42-75 % Lymphocytes (%) (Auto) 21 12-44 % Monocytes (%) (Auto) 8 0-12 % Eosinophils (%) (Auto) 2 0-10 % Basophils (%) (Auto) 1 0-10 % Neutrophils # (Auto) 10.0 H 1.8-7.8 10^3/uL Lymphocytes # (Auto) 3.1 1.0-4.0 10^3/uL Monocytes # (Auto) 1.1 H 0.0-1.0 10^3/uL Eosinophils # (Auto) 0.3 0.0-0.3 10^3/uL Basophils # (Auto) 0.1 0.0-0.1 10^3/uL Immature Granulocyte # (Auto) 0.1 0.0-0.1 10^3/uL Neutrophils % (Manual) 64 % Lymphocytes % (Manual) 25 % Monocytes % (Manual) 5 % Eosinophils % (Manual) 3 % Reactive Lymphocytes 3 % Platelet Estimate NORMAL Blood Morphology Comment NORMAL Prothrombin Time 12.7 12.2-14.7 SEC INR Comment 0.9 0.8-1.4 Activated Partial Thromboplast Time 30 24-35 SEC Sodium Level 132 L 135-145 MMOL/L Potassium Level 4.0 3.6-5.0 MMOL/L Chloride Level 96 L 98-107 MMOL/L Carbon Dioxide Level 21 21-32 MMOL/L Anion Gap 15 H 5-14 MMOL/L Blood Urea Nitrogen 15 7-18 MG/DL Creatinine 0.98 0.60-1.30 MG/DL Estimat Glomerular Filtration Rate 97 BUN/Creatinine Ratio 15 Glucose Level 128 H 70-105 MG/DL Calcium Level 9.5 8.5-10.1 MG/DL Corrected Calcium 8.5-10.1 MG/DL Magnesium Level 1.9 1.6-2.4 MG/DL Total Bilirubin 1.1 H 0.1-1.0 MG/DL Aspartate Amino Transf (AST/SGOT) 62 H 5-34 U/L Alanine Aminotransferase (ALT/SGPT) 63 H 0-55 U/L Alkaline Phosphatase 105 40-136 U/L Troponin I < 0.30 < 0.30 <0.30 NG/ML Pro-B-Type Natriuretic Peptide 31.1 <125.0 PG/ML Total Protein 8.0 6.4-8.2 GM/DL Albumin 4.8 H 3.2-4.5 GM/DL Lipase 18 8-78 U/L My Orders Orders - BRENDA POOLE MD Cbc With Automated Diff (05/10/22 04:21) Magnesium (05/10/22 04:21) Chest 1 View Ap/Pa Only (05/10/22 04:21) Ekg Tracing (05/10/22 04:21) Comprehensive Metabolic Panel (05/10/22 04:21) Protime With Inr (05/10/22 04:21) Partial Thromboplastin Time (05/10/22 04:21) O2 (05/10/22 04:21) Monitor-Rhythm Ecg Trace Only (05/10/22 04:21) Aspirin Chewable Tablet (Baby Aspirin Ch (05/10/22 04:30) Ed Iv/Invasive Line Start (05/10/22 04:21) Lipase (05/10/22 04:21) Troponin I Fs (05/10/22 04:21) Probnp Fs (05/10/22 04:21) Metoprolol Tartrate Injection (Lopressor (05/10/22 04:21) Manual Differential (05/10/22 04:13) Troponin I Fs (05/10/22 05:44) Medications Given in ED Current Medications Medications Dose Ordered Sig/Yann Route Start Time Stop Time Status Last Admin Dose Admin Aspirin 324 mg ONCE ONCE PO 05/10/22 04:30 05/10/22 04:31 DC 05/10/22 04:29 324 MG Vital Signs/I&O 05/10/22 05/10/22 04:04 04:04 Temp 36.9 Pulse 114 Resp 20 B/P (MAP) 177/101 (126) Pulse Ox 98 98 O2 Delivery Room Air Room Air Blood Pressure Mean: 126 Progress Progress Note #1: Progress Note Patient keeps saying he feels like this is a panic attack as it feels similar, but with elevated BP at home he came to be checked out. 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 will check labs and ECG with chest xray. Give aspirin 324 mg po. metoprolol 5 mg IV for his elevated bp and tachycardia. 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 ECG shows sinus tachycardia with minimal ST depression. This appears similar to prior tracings as well as stress test findings from 2019. Progress Note #2: Time: 05:21 Progress Note Reviewed results with patient and that his cardiac enzymes, ECG and Chest xray are stable without acute findings for ischemia or heart attack. Pt states he was reassured and felt that it was just a panic attack and that his chest pain is gone now. He was agreeable to having 2nd troponin drawn just before 6 am to ensure there was no elevation of the Troponin. He has appt at 11 am to see a counselor about stress and anxiety, Opal Child. He feels that he needs something other than Xanax for his anxiety and stress and hopes she can help him with that. He recently tried effexor again but felt it just "wiped him out" and made him like a zombie when he took it with his Xanax. Progress Note #3: Time: 06:30 Progress Note Repeat troponin is still less than 0.3. Reassured patient and counseled on follow-up and return precautions. Keep appointment with counselor later today. Initial ECG Impression Date: May 10, 2022 Initial ECG Impression Time: 04:11 Initial ECG Rate: 111 Initial ECG Rhythm: S.Tach Initial ECG Comparisson: Unchanged Comment Sinus tachycardia with a heart rate of 111 bpm. WI interval [address] elevation noted he has minimal ST depression. QT interval 317 ms with a QTc interval 383 ms. Overall appears similar to prior tracings in the system from 2018 Diagnostic Imaging Diagonstic Imaging: Xray Plain Films/CT/US/NM/MRI: chest Comments On my review of his single view chest x-ray he has no acute process. It appears similar to November 2020. Reviewed: Reviewed by Me Departure Impression Primary Impression: Chest pain in adult Additional Impression: Stress and adjustment reaction Disposition: 01 HOME, SELF-CARE Condition: Stable Departure-Patient Inst. Decision time for Depature: 06:30 Referrals: CARMELA BURT MD (PCP/Family) Primary Care Physician Patient Instructions: Chest Pain, Adult ED, Panic Attack ED Add. Discharge Instructions: Your labs and tests were OK this am and did not show heart attack or heart damage. Keep your appointment with counselor today as scheduled at 11 am. Return or seek medical care if you have new or worsening symptoms such as sweating with chest pain, shortness of breath, nausea/vomiting with chest pains. All discharge instructions reviewed with patient and/or family. Voiced understanding. BRENDA POOLE MD May 10, 2022 04:33
[2022-05-10 04:37] LABS: INR 0.9 (0.8-1.4); PROTHROMBIN TIME PATIENT 12.7 SEC (12.2-14.7)
[2022-05-10] MEDS ORDERED: LISI5TAB20 PO (04:56)
[2022-05-10 04:57] LABS: EOSINOPHILS % (MANUAL) 3 %; LYMPHOCYTES % (MANUAL) 25 %; MONOCYTES % (MANUAL) 5 %; NEUTROPHILS % (MANUAL) 64 %; PLATELET ESTIMATE NORMAL; REACTIVE LYMPHOCYTES 3 %
[2022-05-10 04:58] LABS: CARBON DIOXIDE 21 MMOL/L (21-32); CHLORIDE 96 MMOL/L (98-107); RBC MORPH NORMAL; SODIUM 132 MMOL/L (135-145)
[2022-05-10 04:59] LABS: ALANINE AMINOTRANSFERASE 63 U/L (0-55); ALBUMIN 4.8 GM/DL (3.2-4.5); ALKALINE PHOSPHATASE 105 U/L (40-136); BILIRUBIN,TOTAL 1.1 MG/DL (0.1-1.0); BUN/CREATININE RATIO 15; CALCIUM 9.5 MG/DL (8.5-10.1); CREATININE SERUM 0.98 MG/DL (0.60-1.30); GFR ESTIMATED 97; GLUCOSE 128 MG/DL (70-105); LIPASE 18 U/L (8-78); MAGNESIUM 1.9 MG/DL (1.6-2.4)
--- NOTE | 2022-05-10 06:05 | Diagnostic Imaging Report ---
EXAMINATION: Chest 1 view HISTORY: chest pain COMPARISON: 12/10/2020 FINDINGS: Heart size and pulmonary vasculature are normal. The lungs are clear without consolidation, pleural effusion, or pneumothorax. The osseous structures are intact. IMPRESSION: 1. No acute radiographic abnormality in the chest. Dictated by: Dictated on workstation # [id number]
[2022-05-10 06:35] VITALS: BP 126/68
== END 2022-05-10 06:35 | disposition home or self-care (01) ==
LOC: EDUNIT# 04:04 → ER FS 04:07
DX: F43.20 Adjustment disorder, unspecified (principal); F43.9 Reaction to severe stress, unspecified; R03.0 Elevated blood-pressure reading, without diagnosis of hypertension; R00.0 Tachycardia, unspecified; F17.210 Nicotine dependence, cigarettes, uncomplicated; Z28.310 Unvaccinated for COVID-19
CPT/HCPCS: 36415; 71045; 80053; 83690; 83735; 83880; 84484; 85007; 85027; 85610; 85730; 93005; 93041

== ENCOUNTER 2022-05-12 00:07 | Emergency (ER) | payer MEDICAID ==
[~2022-05-12] VITALS: Ht 170 cm; Wt 101.0 kg
[~2022-05-12 00:07] MED LIST changes: +LISI5TAB20 PO
--- NOTE | 2022-05-12 00:30 | ED General ---
General Chief Complaint: General Problems/Pain Stated Complaint: ED FS Nursing Triage Note: Pt c/o HTN at home of 180/100s. Reports he was recently dx with Anxiety and HTN and recently started taking his Effexor. Also takes Lisinopril and Xanax. Denies headache, visual changes, fatigue, CP or SOA. Source of Information: Patient Exam Limitations: No Limitations History of Present Illness Date Seen by Provider: May 12, 2022 Time Seen by Provider: 00:11 Initial Comments 46-year-old male with past medical history of hypertension and anxiety coming in due to elevated blood pressure. He is on lisinopril 5 mg daily. He is also on Xanax 0.25 mg daily for anxiety. He has had a lot of anxiety provoking things happen, including his of 15 years left him last week. He noticed his blood pressure was 170s and wanted to come in to be evaluated. He takes it twice a day. Typically he is around 130s. Denies any chest pain, shortness of breath, abdominal pain, nausea, vomiting, diarrhea, fever, chills, weakness, numbness, headache, vision changes, or any other concerns. Allergies and Home Medications Allergies Coded Allergies: buspirone (Unverified Allergy, Unknown, 10/10/18) doxycycline (Verified Allergy, Unknown, NAUSEA, 05/08/18) Patient Home Medication List Home Medication List Reviewed: Yes ALPRAZolam (Xanax Tablet) 0.25 Mg Tab, 0.25 MG PO Q8H PRN for ANXIETY, (Reported) Entered as Reported by: VONNIE LOUIS on 10/10/18 1335 Lisinopril (Lisinopril) 5 Mg Tablet, 5 MG PO DAILY, (Reported) Entered as Reported by: VONNIE LOUIS on 05/10/22 0456 Discontinued Medications Amoxicillin/Potassium Clav (Augmentin 500-125 Tablet) 1 Each Tablet, 1 EACH PO BID Discontinued Reason: Referral/FU Appt-Addtl Prescribed by: ESTEFANI RIVERA on 05/12/18 1109 Hydrocodone Bit/Acetaminophen (Lortab 5 Mg Tablet) 1 Each Tablet, 1-2 EACH PO Q4H PRN for PAIN-MODERATE Discontinued Reason: Referral/FU Appt-Addtl Prescribed by: ESTEFANI RIVERA on 05/12/18 1109 Metoprolol Succinate (Metoprolol Succinate) 25 Mg Tab.er.24h, (Reported) Discontinued Reason: Referral/FU Appt-Addtl Entered as Reported by: VONNIE LOUIS on 10/10/18 2344 Review of Systems Review of Systems Constitutional: No fever EENTM: No blurred vision Respiratory: no symptoms reported Cardiovascular: see HPI Gastrointestinal: no symptoms reported Genitourinary: no symptoms reported Musculoskeletal: no symptoms reported Skin: no symptoms reported Psychiatric/Neurological: No Symptoms Reported Hematologic/Lymphatic: No Symptoms Reported Immunological/Allergic: no symptoms reported All Other Systems Reviewed Negative Unless Noted: Yes Past Tuqdxef-Irouey-Kavshm Hx Patient Social History Tobacco Use?: Yes Tobacco type used: Cigarettes Use of E-Cig and/or Vaping dev: No Substance use?: No Alcohol Use?: No Pt feels they are or have been: No Immunizations Up To Date First/Initial COVID19 Vaccinat: denies Second COVID19 Vaccination Taj: pt is unvaccinated Seasonal Allergies Seasonal Allergies: Yes Past Medical History Surgery/Hospitalization HX: Hypertension, Anxiety, Chronic Sinus disease, Sinus surgery Surgeries: Yes (sinus surgery) Gallbladder, Testicular Respiratory: No Cardiac: Yes Hypertension Neurological: No Genitourinary: No Gastrointestinal: Yes Ulcer Musculoskeletal: Yes Arthritis Endocrine: No HEENT: No Cancer: No Psychosocial: Yes (panic attacks) Anxiety Integumentary: No Blood Disorders: No Physical Exam Vital Signs Vital Signs - First Documented 05/12/22 00:15 Temp 36.4 Pulse 122 Resp 20 B/P (MAP) 174/101 (125) Pulse Ox 98 O2 Delivery Room Air Capillary Refill : Less Than 3 Seconds Height, Weight, BMI Height: 5'6.50" Weight: 222lbs. 0.0oz. [id number]; 34.00 BMI Method:Stated General Appearance: No Apparent Distress, WD/WN Eyes: Bilateral Eye Normal Inspection HEENT: PERRL/EOMI, Normal ENT Inspection, Pharynx Normal Neck: Full Range of Motion, Normal Inspection, Non Tender, Supple Respiratory: Chest Non Tender, Lungs Clear, Normal Breath Sounds, No Accessory Muscle Use, No Respiratory Distress Cardiovascular: Regular Rate, Rhythm, No Edema, Normal Peripheral Pulses Gastrointestinal: Normal Bowel Sounds, Non Tender, Soft; No Distended, No G uarding Back: Normal Inspection, No CVA Tenderness Extremity: Normal Capillary Refill, Normal Inspection, Normal Range of Motion, Non Tender, No Calf Tenderness, No Pedal Edema Neurologic/Psychiatric: Alert, Oriented x3, No Motor/Sensory Deficits, Normal Mood/Affect Skin: Normal Color, Warm/Dry Lymphatic: No Adenopathy Progress/Results/Core Measures Suspected Sepsis SIRS Temperature: Pulse: 122 Respiratory Rate: 20 Blood Pressure 174 /101 Mean: 125 Results/Orders Vital Signs/I&O 05/12/22 00:15 Temp 36.4 Pulse 122 Resp 20 B/P (MAP) 174/101 (125) Pulse Ox 98 O2 Delivery Room Air Capillary Refill : Less Than 3 Seconds Blood Pressure Mean: 125 Progress Note : Progress Note 46-year-old male with above history coming in due to asymptomatic hypertension. ABCs were intact and vitals were stable on presentation although he is hypertensive. He is completely asymptomatic and normal on exam. Offered him to have another dose of his lisinopril, but he says he will take it when he gets home. He just started his Effexor recently for his anxiety. He says his anxiety has been so crippling throughout his life but that is why his has left. He has helped for this in the interim. Departure Impression Primary Impression: Hypertension Qualified Codes: I10 - Essential (primary) hypertension Additional Impression: Anxiety Disposition: HOME, SELF-CARE Condition: Stable Departure-Patient Inst. Decision time for Depature: 00:30 Referrals: CARMELA BURT MD (PCP/Family) Primary Care Physician Patient Instructions: High Blood Pressure ED Add. Discharge Instructions: Continue to take your blood pressure twice a day and record these numbers. If you have severe crushing chest pain, severe shortness of breath, worst headache of her life, weakness or numbness we cannot move or feel 1 side of her body, and I would want you to come back to the ER. Otherwise if her pressure is elevated for the next week or so, call your doctor to have an increase in your blood pressure medicine. Work/School Note: Work Release Form Date Seen in the Emergency Department: May 12, 2022 Return to Work: May 13, 2022 Restrictions: No Restrictions ELANA ZELAYA MD May 12, 2022 00:30
[2022-05-12 00:35] VITALS: BP 174/101
== END 2022-05-12 00:35 | disposition home or self-care (01) ==
LOC: EDUNIT# 00:07 → ER FS 00:10
DX: I10 Essential (primary) hypertension (principal); F41.9 Anxiety disorder, unspecified; F17.210 Nicotine dependence, cigarettes, uncomplicated; Z28.310 Unvaccinated for COVID-19; Z79.899 Other long term (current) drug therapy
CPT/HCPCS: 99281

== ENCOUNTER 2022-05-12 06:28 | Emergency (ER) | payer MEDICAID ==
[~2022-05-12] VITALS: Ht 170.1 cm; Wt 101.0 kg
[2022-05-12] MEDS ORDERED: LORazepam 0.5 MG (ATIVAN) TABLET PO STA (06:43)
[2022-05-12] MEDS ORDERED: ASPIRIN 81 MG CHEW (CHILDREN'S ASA) PO ONE (06:45)
[2022-05-12] MEDS ORDERED: lisINopril 10 MG (PRINIVIL) TABLET PO ONE (06:45)
--- NOTE | 2022-05-12 06:51 | ED Cardiac General ---
History of Present Illness General Chief Complaint: Cardiac/General Problems Stated Complaint: CHEST PAIN /DIZZINESS Source: patient Exam Limitations: no limitations (ELANA ZELAYA MD) History of Present Illness Date Seen by Provider: May 12, 2022 Time Seen by Provider: 06:30 Initial Comments 46-year-old male with past medical history most notably for hypertension and anxiety coming in due to chest pain. Was seen in the ER several hours ago for high blood pressure, but at that time was not having any symptoms. He says he went to bed and slept well. Woke up around 530 this morning and had some burning discomfort in his chest, took his blood pressure, and it was elevated. Try to wait it out for a while, but the burning in his chest continued so he presented to the ER. Denies any history of cardiac disease such as heart attack, no prior DVT or PE, no leg swelling or pain, no hemoptysis, no hormone use, no recent surgery, no fever, shortness of breath, abdominal pain, nausea, vomiting, diarrhea, weakness, numbness, headache, vision changes, or any other concerns. (ELANA ZELAYA MD) Allergies and Home Medications Allergies Coded Allergies: buspirone (Unverified Allergy, Unknown, 10/10/18) doxycycline (Verified Allergy, Unknown, NAUSEA, 05/08/18) Patient Home Medication List Home Medication List Reviewed: Yes (ELANA ZELAYA MD) ALPRAZolam (Xanax Tablet) 0.25 Mg Tab, 0.25 MG PO Q8H PRN for ANXIETY, (Reported) Entered as Reported by: VONNIE LOUIS on 10/10/18 1335 Lisinopril (Lisinopril) 5 Mg Tablet, 5 MG PO DAILY, (Reported) Entered as Reported by: VONNIE LOUIS on 05/10/22 0456 Discontinued Medications Amoxicillin/Potassium Clav (Augmentin 500-125 Tablet) 1 Each Tablet, 1 EACH PO BID Discontinued Reason: Referral/FU Appt-Addtl Prescribed by: ESTEFANI RIVERA on 05/12/18 1109 Hydrocodone Bit/Acetaminophen (Lortab 5 Mg Tablet) 1 Each Tablet, 1-2 EACH PO Q4H PRN for PAIN-MODERATE Discontinued Reason: Referral/FU Appt-Addtl Prescribed by: ESTEFANI RIVERA on 05/12/18 1109 Metoprolol Succinate (Metoprolol Succinate) 25 Mg Tab.er.24h, (Reported) Discontinued Reason: Referral/FU Appt-Addtl Entered as Reported by: VONNIE Iglesias HERIBERTO on 10/10/18 7715 Review of Systems Review of Systems Constitutional: No fever EENTM: No Blurred Vision Respiratory: Denies Cough Cardiovascular: Chest Pain Gastrointestinal: No Symptoms Reported Genitourinary: No Symptoms Reported Musculoskeletal: no symptoms reported Skin: no symptoms reported Psychiatric/Neurological: No Symptoms Reported Endocrine: No Symptoms Reported Hematologic/Lymphatic: No Symptoms Reported (ELANA ZELAYA MD) All Other Systems Reviewed Negative Unless Noted: Yes (ELANA ZELAYA MD) Past Vnhcxfs-Kgxybs-Jlzzdn Hx Patient Social History Substance use?: No (ELANA ZELAYA MD) Immunizations Up To Date First/Initial COVID19 Vaccinat: denies Second COVID19 Vaccination Taj: pt is unvaccinated (ELANA ZELAYA MD) Seasonal Allergies Seasonal Allergies: Yes (ELANA ZELAYA MD) Past Medical History Surgery/Hospitalization HX: Hypertension, Anxiety, Chronic Sinus disease, Sinus surgery Surgeries: Yes (sinus surgery) Gallbladder, Testicular Respiratory: No Cardiac: Yes Hypertension Neurological: No Genitourinary: No Gastrointestinal: Yes Ulcer Musculoskeletal: Yes Arthritis Endocrine: No HEENT: No Cancer: No Psychosocial: Yes (panic attacks) Anxiety Integumentary: No Blood Disorders: No (ELANA ZELAYA MD) Physical Exam Vital Signs Vital Signs - First Documented 05/12/22 05/12/22 06:29 07:41 Temp 36.3 Pulse 105 Resp 16 B/P (MAP) 180/117 (138) Pulse Ox 98 O2 Delivery Room Air (BRENDA POOLE MD) Vital Signs Capillary Refill : (ELANA ZELAYA MD) Height, Weight, BMI Height: 5'6.50" Weight: 222lbs. 0.0oz. 100.536692hs; 34.00 BMI Method:Stated General Appearance: No Apparent Distress, WD/WN HEENT: PERRL/EOMI, Normal ENT Inspection, Pharynx Normal Neck: Full Range of Motion, Normal Inspection, Supple Respiratory: Chest Non Tender, Lungs Clear, Normal Breath Sounds, No Accessory Muscle Use, No Respiratory Distress Cardiovascular: Regular Rate, Rhythm, No Edema, Normal Peripheral Pulses Gastrointestinal: Normal Bowel Sounds, Non Tender, Soft; No Distended, No Guarding Extremity: Normal Capillary Refill, Normal Inspection, Normal Range of Motion, Non Tender, No Calf Tenderness, No Pedal Edema Neurologic/Psychiatric: Alert, No Motor/Sensory Deficits, Normal Mood/Affect Skin: Normal Color, Warm/Dry Lymphatic: No Adenopathy (ELANA ZELAYA MD) Progress/Results/Core Measures Results/Orders Lab Results Laboratory Tests Test 05/12/22 06:45 Range/Units White Blood Count 12.2 H 4.3-11.0 10^3/uL Red Blood Count 5.29 4.30-5.52 10^6/uL Hemoglobin 16.0 13.3-17.7 g/dL Hematocrit 45 40-54 % Mean Corpuscular Volume 84 80-99 fL Mean Corpuscular Hemoglobin 30 25-34 pg Mean Corpuscular Hemoglobin Concent 36 32-36 g/dL Red Cell Distribution Width 12.5 10.0-14.5 % Platelet Count 314 130-400 10^3/uL Mean Platelet Volume 10.0 9.0-12.2 fL Immature Granulocyte % (Auto) 0 % Neutrophils (%) (Auto) 62 42-75 % Lymphocytes (%) (Auto) 28 12-44 % Monocytes (%) (Auto) 8 0-12 % Eosinophils (%) (Auto) 2 0-10 % Basophils (%) (Auto) 1 0-10 % Neutrophils # (Auto) 7.6 1.8-7.8 10^3/uL Lymphocytes # (Auto) 3.4 1.0-4.0 10^3/uL Monocytes # (Auto) 1.0 0.0-1.0 10^3/uL Eosinophils # (Auto) 0.2 0.0-0.3 10^3/uL Basophils # (Auto) 0.1 0.0-0.1 10^3/uL Immature Granulocyte # (Auto) 0.0 0.0-0.1 10^3/uL Prothrombin Time 13.0 12.2-14.7 SEC INR Comment 0.9 0.8-1.4 Activated Partial Thromboplast Time 31 24-35 SEC Sodium Level 131 L 135-145 MMOL/L Potassium Level 3.7 3.6-5.0 MMOL/L Chloride Level 96 L 98-107 MMOL/L Carbon Dioxide Level 20 L 21-32 MMOL/L Anion Gap 15 H 5-14 MMOL/L Blood Urea Nitrogen 16 7-18 MG/DL Creatinine 0.92 0.60-1.30 MG/DL Estimat Glomerular Filtration Rate 105 BUN/Creatinine Ratio 17 Glucose Level 114 H 70-105 MG/DL Calcium Level 9.1 8.5-10.1 MG/DL Corrected Calcium 8.8 8.5-10.1 MG/DL Magnesium Level 2.0 1.6-2.4 MG/DL Total Bilirubin 0.4 0.1-1.0 MG/DL Aspartate Amino Transf (AST/SGOT) 20 5-34 U/L Alanine Aminotransferase (ALT/SGPT) 39 0-55 U/L Alkaline Phosphatase 92 40-136 U/L Troponin I < 0.30 <0.30 NG/ML Total Protein 7.4 6.4-8.2 GM/DL Albumin 4.4 3.2-4.5 GM/DL (BRENDA POOLE MD) Medications Given in ED Current Medications Medications Dose Ordered Sig/Yann Route Start Time Stop Time Status Last Admin Dose Admin Aspirin 324 mg ONCE ONCE PO 05/12/22 06:45 05/12/22 06:46 DC 05/12/22 06:42 324 MG Lisinopril 10 mg ONCE ONCE PO 05/12/22 06:45 05/12/22 06:46 DC 05/12/22 06:46 10 MG (BRENDA POOLE MD) Vital Signs/I&O 05/12/22 05/12/22 06:29 07:41 Temp 36.3 36.2 Pulse 105 72 Resp 16 B/P (MAP) 180/117 (138) 139/86 Pulse Ox 98 100 O2 Delivery Room Air Room Air (BRENDA POOLE MD) Progress Progress Note : Progress Note 46-year-old male with above history coming in due to chest pain. ABCs were intact and vitals were stable on presentation although he is hypertensive. Initial blood pressure 180s systolic. EKG with no acute ischemic changes. Chest x-ray ordered and interpreted by me showing no acute abnormality including no obvious pneumothorax, pneumonia, pleural effusion, normal cardiac silhouette. He is low risk for PE per [place] criteria and I think it is very unlikely. He described the pain as a burning, and it went away actually prior to my interview with him. He was given 10 mg of lisinopril for his blood pressure on arrival as well as aspirin and Ativan. He says the anxiety that he has has been crippling for many many years. He says this is the reason his spouse left him last week. He says his anxiety is so bad most of the time that he is unable to go out in public. I think it is highly likely that this is related to that, but an abundance of caution an IV was placed and basic labs were obtained including cardiac biomarkers. The patient will be signed out to the oncoming physician pending this work-up. I suspect he will go home and he follow-up with his primary physician to either adjust his blood pressure medicine, or talk about short-term plan while the Effexor is starting to work for his anxiety. (ELANA ZELAYA MD) Progress Note : Progress Note I assumed care of the patient from Dr. Zelaya at shift change. His labs came back looking ok and continued negative Troponin, ECG, CXR. Reassured pt and discussed options of speaking with his provider about adjusting his blood pressure medicine, taking a long acting BZD instead of short acting Xanax, tryin g acid reducing medicine since he had burning sensation and had eaten a larger meal last night before bed after several days of not eating well due to stress and anxiety over his leaving him. (BRENDA POOLE MD) Initial ECG Impression Date: May 12, 2022 Initial ECG Impression Time: 06:34 Initial ECG Rate: 108 Initial ECG Rhythm: S.Tach Comment Narrow QRS, normal axis, no significant ST changes or T wave abnormalities (ELANA ZELAYA MD) Diagnostic Imaging Diagonstic Imaging: Xray Plain Films/CT/US/NM/MRI: chest (ELANA ZELAYA MD) Departure Impression Primary Impression: Non-cardiac chest pain Additional Impressions: Stress and adjustment reaction Gastritis Qualified Codes: K29.00 - Acute gastritis without bleeding Disposition: HOME, SELF-CARE Condition: Stable Departure-Patient Inst. Decision time for Depature: 07:47 (BRENDA POOLE MD) Referrals: CARMELA BURT MD (PCP/Family) Primary Care Physician Patient Instructions: Anxiety, Adult ED, Chest Pain, Adult ED, Gastritis ED Add. Discharge Instructions: Check with clinic about ways to help with your increased stress and elevated blood pressures. They may want to increase your blood pressure medicine at least short term. Another possible option is changing from Xanax (Alprazolam) to a longer acting benzodiazepine medicine such as Ativan (Lorazepam) to help you come off of the Xanax and give a chance for the Effexor to work and work with your new therapist. For at least the next week take Pantoprazole (Protonix) to help with gastritis and stomach irritation. Your provider may consider setting you up for a repeat stress test since it was last done in 2019. They may also consider having you get an EGD (scope to look at your stomach). Call clinic today and see if they can get you seen sooner than your next scheduled appointment and check about the above possible treatment options to see how they want to help you manage this increased stress, blood pressure, burning in stomach. ELANA ZELAYA MD May 12, 2022 06:51 BRENDA POOLE MD May 12, 2022 07:52
[2022-05-12 06:57] LABS: BASOPHILS # (AUTO) 0.1 10^3/uL (0.0-0.1); BASOPHILS % (AUTO) 1 % (0-10); EOSINOPHILS # (AUTO) 0.2 10^3/uL (0.0-0.3); EOSINOPHILS % (AUTO) 2 % (0-10); HEMATOCRIT 45 % (40-54); LYMPHOCYTES # (AUTO) 3.4 10^3/uL (1.0-4.0); LYMPHOCYTES % (AUTO) 28 % (12-44); MEAN CORPUSCULAR HEMOGLOBIN 30 pg (25-34); MEAN CORPUSCULAR HGB CONC 36 g/dL (32-36); MEAN CORPUSCULAR VOLUME 84 fL (80-99); MONOCYTES % (AUTO) 8 % (0-12); NEUTROPHILS # (AUTO) 7.6 10^3/uL (1.8-7.8); NEUTROPHILS % (AUTO) 62 % (42-75); PLATELET COUNT 314 10^3/uL (130-400); WHITE BLOOD COUNT 12.2 10^3/uL (4.3-11.0)
--- NOTE | 2022-05-12 07:02 | Diagnostic Imaging Report ---
Indication: Chest pain Portable chest 6:44 AM Heart size and pulmonary vascularity are normal. Lungs are clear. There are no effusions or pneumothoraces. IMPRESSION: No acute abnormalities in the chest. Dictated by: Dictated on workstation # [id number]
[2022-05-12 07:13] LABS: INR 0.9 (0.8-1.4)
[2022-05-12 07:17] LABS: BILIRUBIN,TOTAL 0.4 MG/DL (0.1-1.0); CALCIUM 9.1 MG/DL (8.5-10.1); CREATININE SERUM 0.92 MG/DL (0.60-1.30); POTASSIUM 3.7 MMOL/L (3.6-5.0); TOTAL PROTEIN 7.4 GM/DL (6.4-8.2)
[2022-05-12 07:18] LABS: ALBUMIN 4.4 GM/DL (3.2-4.5)
[2022-05-12 07:41] VITALS: BP 139/86
== END 2022-05-12 07:56 | disposition home or self-care (01) ==
LOC: EDUNIT# 06:28 → ER FS 06:31
DX: K29.70 Gastritis, unspecified, without bleeding (principal); F43.9 Reaction to severe stress, unspecified; F43.20 Adjustment disorder, unspecified; R03.0 Elevated blood-pressure reading, without diagnosis of hypertension; Z28.310 Unvaccinated for COVID-19
CPT/HCPCS: 36415; 71045; 80053; 83735; 84484; 85025; 85610; 85730; 93005; 93041